=== PATIENT | male | born 1955 | race Caucasian/White ===

== ENCOUNTER 2025-01-16 01:54 | Emergency (ER) | payer MEDICARE ==
[~2025-01-16] VITALS: Ht 172.7 cm; Wt 86.4 kg
[2025-01-16 02:36] VITALS: BP 171/102; PULSE 98; RESP 16; TEMP 98.8; O2SAT 98
[2025-01-16] MEDS: CARBIDOPA/LEVODOPA 25-100 MG TABLET PO ONE (03:58)
[2025-01-16] MEDS: FUROSEMIDE 20 MG TABLET PO ONE (03:58)
[2025-01-16] MEDS: ACETAMINOPHEN/CODEINE 300-30 MG TABLET PO ONE (04:24)
== END 2025-01-16 06:26 | disposition home or self-care (01) ==
LOC: EMS 03:22
DX: R60.0 Localized edema (principal); I10 Essential (primary) hypertension; E78.00 Pure hypercholesterolemia, unspecified; G20.A1 Parkinson's disease without dyskinesia, without mention of fluctuations; I48.91 Unspecified atrial fibrillation; Z88.8 Allergy status to other drugs, medicaments and biological substances; Z87.440 Personal history of urinary (tract) infections
CPT/HCPCS: 99284; Z7502; Z7610

== ENCOUNTER 2025-05-14 09:56 | Emergency (ER) | payer MEDICARE ==
[~2025-05-14] VITALS: Ht 175.3 cm; Wt 77.5 kg
[2025-05-14 10:11] VITALS: TEMP 97.7
[2025-05-14 10:40] LABS: PLATELET COUNT (AUTO) 192 K/uL (150-450); RED BLOOD CELL COUNT(AUTO) 4.22 MIL/uL (4.50-5.90); RED CELL DISTRIBUTION WIDTH 15.0 % (11.5-14.5); WHITE BLOOD COUNT (AUTO) 7.9 K/uL (4.5-11.0)
[2025-05-14 10:50] LABS: CALCIUM, TOTAL 8.9 mg/dL (8.8-10.5); CREATININE 0.82 mg/dL (0.60-1.30); GLOMERULAR FILTR. RATE CALC > 60 mL/min (>60); GLUCOSE,RANDOM 95 mg/dL (70-110); SODIUM SERUM 148 mmol/L (136-145); UREA NITROGEN, BLOOD 21 mg/dL (7-18)
[2025-05-14 10:56] LABS: TROPONIN I-HIGH SENSITIVITY 29 ng/L (<76)
[2025-05-14] MEDS ORDERED: ROPI1TAB46 PO (10:56)
[2025-05-14] MEDS ORDERED: RANO500T27 PO (10:56)
[2025-05-14] MEDS ORDERED: PIMA34CA PO (10:56)
[2025-05-14] MEDS ORDERED: ROPI2TAB26 PO (10:56)
[2025-05-14] MEDS ORDERED: CARB1CAP PO (10:56)
[2025-05-14] MEDS ORDERED: PREG50 PO (10:56)
[2025-05-14] MEDS ORDERED: CARB1CAP7 PO (10:56)
[2025-05-14 10:59] LABS: LACTIC ACID 1.9 mmol/L (0.4-2.0)
[2025-05-14] MEDS: CEPHALEXIN MONOHYDRATE 500 MG CAPSULE PO ONE (13:20)
[2025-05-14] MEDS: CARBIDOPA/LEVODOPA 50-200 MG ER TABLET PO ONE (13:20)
[2025-05-14 13:35] VITALS: BP 112/65; PULSE 71; RESP 16; O2SAT 96
== END 2025-05-14 13:58 | disposition home or self-care (01) ==
LOC: EMS 09:57 → EDBD 09:57 → EMS 13:58
DX: R46.2 Strange and inexplicable behavior (principal); G20.A1 Parkinson's disease without dyskinesia, without mention of fluctuations; N39.0 Urinary tract infection, site not specified; E78.00 Pure hypercholesterolemia, unspecified; I10 Essential (primary) hypertension; Z88.5 Allergy status to narcotic agent
CPT/HCPCS: 71045; 80048; 83605; 83690; 84484; 85025; 99283; 36415-L1; 36415-TC